=== PATIENT | female | born 1945 | race Caucasian/White ===

== ENCOUNTER → 2018-08-29 | Outpatient (CLI) | payer MEDICARE | END | disposition home or self-care (01) | LOC: RAH 10:58 | PROVIDERS: ATTEND Internal Medicine Critical Care Medicine | DX: M25.551 Pain in right hip (principal) | CPT/HCPCS: 73721 ==

== ENCOUNTER → 2021-12-16 | Outpatient (CLI) | payer MEDICARE ==
[~2021-12-16] MED LIST: REGADENOSON 0.4 MG/5 ML PF SYG IVP SCH
== END | disposition home or self-care (01) ==
LOC: SHCH 09:58
PROVIDERS: ATTEND Internal Medicine Cardiovascular Disease
DX: R07.9 Chest pain, unspecified (principal); I45.19 Other right bundle-branch block; I49.9 Cardiac arrhythmia, unspecified
CPT/HCPCS: 78452; 93017; 96374; A9500 ×2; J2785